=== PATIENT | male | born 1950 | race Caucasian/White ===

== ENCOUNTER 2022-01-25 12:47 | Observation (INO) ==
[2022-01-25 13:07] LABS: ABS Lymphocytes 0.8 10^3/ul (1.0-4.8); ABS Monocytes 1.2 10^3/ul (0-0.8); ABS Neutrophils 6.5 10^3/ul (1.5-7.7); Eosinophil % 0.5 %; Hematocrit 38 % (42-52); Hemoglobin 12.7 g/dL (14.0-18.0); Lymphocyte % 8.8 %; Mean Corpuscular HGB Conc 33 g/dL (31-36); Mean Corpuscular Hemoglobin 31 pg (27-31); Mean Corpuscular Volume 95 fL (80-94); Mean Platelet Volume 7.7 fL (7.4-10.4); Platelet Count 162 10^3/uL (150-450); Red Blood Count 4.03 10^6 /uL (4.18-5.48); Red Cell Distribution Width 14 % (10-15); White Blood Count 8.5 10^3/uL (3.5-10.8)
[2022-01-25 13:16] LABS: INR 1.13 (0.86-1.15)
[2022-01-25 13:57] LABS: Albumin 4.4 g/dL (3.2-5.2); Calcium 9.7 mg/dL (8.6-10.3); Globulin 2.2 g/dL (2-4); Potassium 4.2 mmol/L (3.5-5.0); Total Bilirubin 0.7 mg/dL (0.2-1.0); Total Protein 6.6 g/dL (6.4-8.9); eGFR CKD-EPI 94.4 (>60)
[2022-01-25 15:16] LABS: High Sensitivity Troponin 1 Hr 6 pg/mL (<20)
[2022-01-25 15:27] LABS: Activated Partial Thrombo Time 33.3 seconds (26.0-38.0)
[2022-01-25] MEDS ORDERED: Nicotine Lozenge mini 4 MG LOZNG.MINI MT PRN (17:01)
[2022-01-25] MEDS ORDERED: Nicotine GUM 4MG FRUIT FLAVOR PO PRN (17:01)
[2022-01-25] MEDS ORDERED: Enoxaparin 40 MG/0.4 ML SYR SUBCUT SCH (18:00)
[2022-01-26 00:48] LABS: C Reactive Protein 42.67 mg/L (<8.01)
[2022-01-26 05:25] LABS: ABS Eosinophils 0.2 10^3/ul (0-0.6); ABS Lymphocytes 1.7 10^3/ul (1.0-4.8); ABS Monocytes 1.1 10^3/ul (0-0.8); ABS Neutrophils 4.5 10^3/ul (1.5-7.7); Eosinophil % 2.2 %; Hematocrit 35 % (42-52); Hemoglobin 11.6 g/dL (14.0-18.0); Lymphocyte % 22.7 %; Mean Corpuscular HGB Conc 34 g/dL (31-36); Mean Corpuscular Hemoglobin 32 pg (27-31); Mean Corpuscular Volume 94 fL (80-94); Mean Platelet Volume 8.1 fL (7.4-10.4); Platelet Count 142 10^3/uL (150-450); Red Blood Count 3.67 10^6 /uL (4.18-5.48); Red Cell Distribution Width 14 % (10-15); White Blood Count 7.5 10^3/uL (3.5-10.8)
[2022-01-26 05:39] LABS: Calcium 9.2 mg/dL (8.6-10.3); Potassium 4.2 mmol/L (3.5-5.0); eGFR CKD-EPI 95.9 (>60)
[2022-01-26] MEDS ORDERED: Nicotine PATCH 21 MG/24 HR PATCH TRANSDERM SCH (08:00)
[2022-01-26] MEDS ORDERED: Regadenoson 0.4 MG/5 ML SYRINGE ONE (08:11)
[2022-01-26] MEDS ORDERED: Aminophylline 25 MG/ML VIAL ONE (08:11)
[2022-01-26 14:52] LABS: RBC Parasite Smear No Parasites Seen (No Parasite)
[2022-01-26 15:35] LABS: Albumin 3.8 g/dL (3.2-5.2); Direct Bilirubin 0.2 mg/dL (0.03-0.18); Globulin 1.9 g/dL (2-4); Indirect Bilirubin 0.7 mg/dL (0.3-1.0); Total Bilirubin 0.9 mg/dL (0.2-1.0); Total Protein 5.7 g/dL (6.4-8.9)
[2022-01-26] MEDS ORDERED: Isosorbide Mononit ER 30mg TAB PO SCH (16:00)
[2022-01-26] MEDS ORDERED: DOXYcycline 100 MG in NS 0.9% 250 ml 250 ML IVPB SCH ×2 (16:00→18:00)
[2022-01-26 16:20] VITALS: BP 119/53
[2022-01-30 00:05] LABS: Anaplasma phagocytophilum Negative (Negative); B. miyamotoi PCR, B Negative (Negative); Babesia divergens/MO-1 Negative (Negative); Babesia ducani Negative (Negative); Ehrlichia chaffeensis Negative (Negative); Ehrlichia ewingii/canis Negative (Negative); Ehrlichia muris eauclairensis Negative (Negative)
== END 2022-01-26 18:42 | disposition home or self-care (01) ==
LOC: ED 12:47 → EDHOLD 12:47 → MEDTELE 20:31
PROVIDERS: ADMIT Internal Medicine; ATTEND Internal Medicine